=== PATIENT | male | born 1985 | race African-American/Black ===

== ENCOUNTER 2025-06-29 09:17 | Emergency (ER) | payer OTHER, SELFPAY ==
[~2025-06-29] VITALS: Ht 175.3 cm; Wt 70.4 kg
[2025-06-29] MEDS: PANTOPRAZOLE 40MG VIAL IV ONE (11:16)
[2025-06-29] MEDS: ONDANSETRON 4MG 2ML VIAL IV ONE (11:17)
[2025-06-29] MEDS: SODIUM CHLORIDE 0.9% 1000 ML IV SCH (11:18)
[2025-06-29] MEDS: MORPHINE 2 MG/ML 1 ML VIAL IV PRN (11:18)
[2025-06-29 11:19] LABS: VENOUS BASE EXCESS 1.3 (-2.0-2.0); VENOUS HCO3 25.2 MMOL/L (23.0-27.0); VENOUS O2 SATURATION 96.4 % (60.0-80.0); VENOUS PARTIAL PRESSURE CO2 37.5 mmHg (38.0-50.0); VENOUS PARTIAL PRESSURE O2 79.4 mmHg (30.0-50.0); VENOUS PH 7.445 UNITS (7.330-7.430); VENOUS STANDARD HCO3 25.6 MMOL/L; VENOUS TOTAL CO2 26.3 MMOL/L (24.0-28.0)
[2025-06-29 11:32] LABS: BASO # 0.0 10^3/uL (0.0-0.2); BASO % 0.6 % (0.0-1.0); EOS # 0.0 10^3/uL (0.0-0.5); EOS % 0.0 % (0.0-3.0); LYMPH # 2.1 10^3/uL (1.5-5.0); LYMPH % 29.3 % (24.0-44.0); MONO # 0.5 10^3/uL (0.0-0.8); MONO % 7.4 % (2.0-8.0); NEUTROPHILS # 4.5 10^3/uL (1.5-8.5); NEUTROPHILS % 62.6 % (36.0-66.0); PLATELET COUNT, AUTOMATED 380 10^3/uL (150-450)
[2025-06-29] MEDS ORDERED: ISOVUE-370 76% 100 ML VIAL As Ordered ONE (11:59)
[2025-06-29 12:01] LABS: CK-MB VALUE MASS < 1.0 NG/ML (<3.6)
[2025-06-29 12:04] LABS: ALT/SGPT 20 U/L (7.0-40); AST/SGOT 16 U/L (<34); CALCIUM LEVEL 10.3 MG/DL (8.5-10.1); CARBON DIOXIDE LEVEL 27 MMOL/L (20-31); CHLORIDE LEVEL 101 MMOL/L (98-107); CPK CREATINE PHOSPHOKINASE 104 U/L (46-171); CREATININE FOR GFR 1.06 MG/DL (0.70-1.30); GLOMERULAR FILTRATION RATE > 90.0 (>60); POTASSIUM SERUM 3.1 MMOL/L (3.5-5.1); SODIUM LEVEL 140 MMOL/L (136-145)
[2025-06-29 12:55] LABS: D-DIMER QUANT 0.29 ug/mL (<0.5); INR 1.0
[2025-06-29] MEDS: KCL 10MEQ/100ML SWI (KRUN) 10 MEQ in IV 1 EA IV ONE (14:01)
[2025-06-29 15:57] LABS: CALCIUM LEVEL 9.1 MG/DL (8.5-10.1); CARBON DIOXIDE LEVEL 25 MMOL/L (20-31); CHLORIDE LEVEL 104 MMOL/L (98-107); CREATININE FOR GFR 1.00 MG/DL (0.70-1.30); GLOMERULAR FILTRATION RATE > 90.0 (>60); POTASSIUM SERUM 4.5 MMOL/L (3.5-5.1); SODIUM LEVEL 140 MMOL/L (136-145)
[2025-06-29 16:51] LABS: BASO # 0.1 10^3/uL (0.0-0.2); BASO % 0.8 % (0.0-1.0); EOS # 0.0 10^3/uL (0.0-0.5); EOS % 0.2 % (0.0-3.0); LYMPH # 3.7 10^3/uL (1.5-5.0); LYMPH % 44.3 % (24.0-44.0); MONO # 0.7 10^3/uL (0.0-0.8); MONO % 8.0 % (2.0-8.0); NEUTROPHILS # 3.9 10^3/uL (1.5-8.5); NEUTROPHILS % 46.2 % (36.0-66.0); PLATELET COUNT, AUTOMATED 345 10^3/uL (150-450)
[2025-06-29 17:30] VITALS: BP 137/85; TEMP 98.3; O2SAT 99
[2025-06-29] MEDS ORDERED: ONDA-282 PO (17:31)
== END 2025-06-29 17:52 | disposition home or self-care (01) ==
LOC: M ED 09:17
DX: K92.0 Hematemesis (principal); F12.10 Cannabis abuse, uncomplicated; F10.10 Alcohol abuse, uncomplicated; Z79.899 Other long term (current) drug therapy
CPT/HCPCS: 71045; 74174; 80047; 80048; 80053; 82248; 82550; 82553; 82803; 83605; 83690; 84484; 85025; 85379; 85384; 85610; 85730; 87040; 93005; 93041; 96365; 96375; 99285; J2405; J2470; Q9967